=== PATIENT | male | born 1970 | race African-American/Black ===

== ENCOUNTER 2017-10-24 17:01 | Emergency (ER) | payer OTHER ==
--- NOTE | 2017-10-24 17:33 | ED Physician Documentation ---
Skin Rash - HISTORIAN Historian: patient - HPI Stated Complaint: rash on face Chief Complaint: Skin Rash Onset: days ago (2) Timing: still present Duration: worse Location: facial Quality: itchy, painful, burning Identified Cause?: Yes (hair dye for ontiveros ) Where: home Context: Medication Exposure: none Context: Food Exposure: none - ROS CONST: none CVS/RESP: none EYES/ENT: none GI/: none MS/SKIN/LYMPH: rash NEURO/PSYCH: none - PAST HX Past History: none Other History: none Surgeries/Procedures: No Immunizations: UTD Allergies/Adverse Reactions: Allergies Allergy/AdvReac Type Severity Reaction Status Date / Time Penicillins Allergy Unknown Verified 10/24/17 17:48 Home Medications: Ambulatory Orders Medication Instructions Recorded Albuterol Sulfate [Proair Hfa] 8.5 gm IH Q6H PRN 10/24/17 - SOCIAL HX Smoking History: non-smoker Alcohol Use: none Drug Use: none - FAMILY HX Family History: none - VITAL SIGNS Vital Signs: Vital Signs Temp Pulse Resp BP Pulse Ox 98.0 F 78 16 178/83 97 10/24/17 17:42 10/24/17 17:42 10/24/17 17:42 10/24/17 17:42 10/24/17 17:42 - REVIEWED ASSESSMENTS Nursing Assessment Reviewed: Yes Vitals Reviewed: Yes Skin Rash Physical Exam - EXAM General Appearance: no acute distress, alert Skin: warm,dry, other (red area on ontiver[place] hair line. red raised clear discharge open areas /crusting areas ) Location: face Character: symmetric, asymmetric Symptoms: warmth, swelling Extremities: non-tender, nml ROM EENT: eyes nml inspection, lips nml Neck: trachea midline, no swelling Respiratory: no resp distress, chest non-tender, breath sounds normal CVS: reg. rate & rhythm, heart sounds nml Abdomen: non-tender, nml bowel sounds, no distention Neuro/Psych: oriented x3, CN's nml as tested, motor nml, sensation nml, mood/ affect nml Discharge Clincal Impression: Folliculitis Referrals: Rafael Chaves MD [Primary Care Provider] - 2 Days Comments: 1. Keep area clean and dry - no ointments 2. Medrol Dose pack - as directed 3. Bactrim DS take 1 by mouth BID x 10 days 4. Continue use of Benadryl as needed 5. Follow up with PCP in 2-4 days 6. Return to ER for increasing pain, redness or drainage or other concerns Condition: Stable Disposition: 01 HOME, SELF-CARE Decision to Admit: NO Date of Decison to Admit: 10/24/17 Decision Time: 17:38
[2017-10-24 17:57] VITALS: BP 178/83
== END 2017-10-24 17:42 | disposition home or self-care (01) ==
LOC: ED 17:01
DX: L73.9 Follicular disorder, unspecified (principal)

== ENCOUNTER 2018-01-30 23:35 | Emergency (ER) | payer OTHER ==
[2018-01-30] MEDS ORDERED: CEPHALEXIN 250 MG CAPSULE PO ONE (23:53)
--- NOTE | 2018-01-30 23:55 | ED Physician Documentation ---
General Adult - HISTORIAN Historian: patient - HPI Stated Complaint: scalp abscess Chief Complaint: General Adult Onset: days ago (1) Timing: still present Severity: moderate Further Comments: yes (Pt is a 47 yo aa male with c/o an infection in his scalp. Pt shaves his head and wonders if he got an infection from shaving, or if he possibly had an insect bite. Pt first noticed the swelling on his scalp this evening. No n/v, fever or other sx.) - ROS CONST: no problems EYES/ENT: none CVS/RESP: none GI/: none MS/SKIN/LYMPH: other (scalp inflammation/swelling) - PAST HX Past History: none Allergies/Adverse Reactions: Allergies Allergy/AdvReac Type Severity Reaction Status Date / Time Penicillins Allergy Unknown Verified 01/30/18 23:58 Home Medications: Ambulatory Orders Medication Instructions Recorded Albuterol Sulfate [Proair Hfa] 8.5 gm IH Q6H PRN 10/24/17 Cephalexin [Keflex] 500 mg PO Q6H #40 capsule 01/30/18 - SOCIAL HX Smoking History: cigarettes - FAMILY HX Family History: No - VITAL SIGNS Vital Signs: Vital Signs Temp Pulse Resp BP Pulse Ox 178/83 10/24/17 17:42 - REVIEWED ASSESSMENTS Nursing Assessment Reviewed: Yes Vitals Reviewed: Yes Progress - Progress Progress: Rx Keflex 500 mg. Take one every 6 hours for 10 days. 1st dose in ER. Return to ER or follow up with extension service specialist if condition worsens or you have new symptoms or concerns. ED Results Lab/Radiology - Orders Orders: ED Orders Category Date Time Status Cephalexin [Keflex] Med 01/30/18 23:53 Once 500 mg PO NOW ONE General Adult Physical Exam - PHYSICAL EXAM GENERAL APPEARANCE: no distress EENT: pharynx normal NECK: normal inspection, supple RESPIRATORY: no resp distress, chest non-tender, breath sounds normal CVS: reg rate & rhythm, heart sounds normal BACK: normal inspection SKIN: other (3 cm indurated scalp lesion, near crown of head (pt shaves his head). No central darkening. ) EXTREMITIES: non-tender, normal range of motion, no evidence of injury NEURO: oriented X3, motor nml, sensation nml Discharge Clincal Impression: Scalp abscess Prescriptions: Cephalexin [Keflex] 500 mg PO Q6H #40 capsule Referrals: Rafael Chaves MD [Primary Care Provider] - Condition: Stable Disposition: 01 HOME, SELF-CARE Decision to Admit: NO Decision Time: 00:15
[2018-01-31 01:37] VITALS: BP 158/98
== END 2018-01-31 00:20 | disposition home or self-care (01) ==
LOC: ED 23:35
DX: L02.811 Cutaneous abscess of head [any part, except face] (principal)